=== PATIENT | female | born 1980 | race Caucasian/White ===

== ENCOUNTER 2016-12-25 15:34 | Emergency (ER) | payer BC | END 2016-12-25 16:45 | disposition home or self-care (01) | LOC: ER 15:34 | DX: S89.301A Unspecified physeal fracture of lower end of right fibula, initial encounter for closed fracture (principal); E66.9 Obesity, unspecified; Z68.36 Body mass index [BMI] 36.0-36.9, adult; X50.0XXA Overexertion from strenuous movement or load, initial encounter ==